=== PATIENT | female | born 1945 | race Caucasian/White ===

== ENCOUNTER 2022-05-03 09:29 | Day surgery (SDC) | payer BC, SELFPAY ==
[2022-05-03 09:40] VITALS: BP 142/71; PULSE 76; RESP 16; TEMP 36.6; O2SAT 99
[2022-05-03 10:12] VITALS: BMI 23.9
--- NOTE | 2022-05-03 10:12 | W.ANESPRE ---
General Info Date of Service Date Performed: 05/03/22 Height: 5 ft 3 in Weight: 61.235 kg Body Mass Index (BMI): 23.9 Surgical Procedure: Operation Date: 05/03/22 11:25 Proposed Procedure Side Surgeon p Cataract Extraction with IOL Implant Left Morales Coto MD Meds Allergies and Home Medications Allergies Allergy/AdvReac Type Severity Reaction Status Date / Time cefuroxime [From Ceftin] Allergy Severe Anaphylaxis Unverified 05/03/22 10:25 latex Allergy Severe Skin Rash Unverified 05/03/22 10:25 prednisone Allergy Severe Anaphylaxis Unverified 05/03/22 10:25 sulfamethoxazole Allergy Mild Hives Unverified 05/03/22 10:25 clarithromycin [From Biaxin] Allergy Unknown Other (See Unverified 05/03/22 10:25 Comment) NSAIDS (Non-Steroidal AdvReac Severe Contraindic Unverified 05/03/22 10:25 Anti-Inflamma ated tramadol AdvReac Severe Contraindic Unverified 05/03/22 10:25 ated Home Medication Medication Instructions Recorded carbidopa ER 36.25 mg-levodopa 145 2 cap PO DIRECTED 04/30/22 mg capsule,extended release carbidopa ER 48.75 mg-levodopa 195 1 cap PO DIRECTED 04/30/22 mg capsule,extended release cyclosporine 0.05 % eye drops in a 1 drp ophthalmic (eye) Q12H 04/30/22 dropperette diclofenac 75 mg-misoprostol 200 1 tab PO DAILY 04/30/22 mcg tablet,immediate,delayed release (Arthrotec) dicyclomine 10 mg capsule 10 mg PO TID 04/30/22 fluticasone propionate 50 1 spray intranasal BID 04/30/22 mcg/actuation nasal spray,suspension omeprazole 40 mg capsule,delayed 40 mg PO DAILY 04/30/22 release Current Visit Medications: Current Medications Generic Name Dose Route Start Last Admin Trade Name Freq PRN Reason Stop Dose Admin Acetaminophen 1,000 mg 05/03/22 06:00 Acetaminophen 500 Mg Tab PO Q4H PRN PRN Miscellaneous Medication 0 ml 05/03/22 06:00 Tropicam./Phenyleph. 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 Hx of surgical procedure Hx of rib removal [place] teeth extracted Tobacco Smoking/Tobacco Use Status: Never Alcohol Alcohol Intake: never Substance Use Substance use: Never Substance use type: does not use Vital Signs and Lab Results Lab Results Blood Type / Crossmatch: No Data to Display Complete Blood Count: No Data to Display Complete Metabolic Panel: No Data to Display Liver Function Panel: No Data to Display Coagulation Panel: No Data to Display Cardiac Panel: No Data to Display Arterial Blood Gas: No Data to Display Venous Blood Gas: No Data to Display Pancreas Panel: No Data to Display Thyroid Panel: No Data to Display Infectious Disease: No Data to Display Blood Cultures: No Data to Display Toxicology Panel: No Data to Display Anesthesia Assessment and Plan Anesthesia History Personal History: No History of Anesthesia Complications Family History: No Family History of Anesthesia Complications Exercise Tolerance Exercise Tolerance: Metabolic Equivalents>4 Cardiac & Pulmonary Exam Cardiac Exam: Normal S1/S2 Heart Sounds Pulmonary Exam: Clear Bilateral Breath Sounds Implantable Cardiac Device Does patient have a Pacemaker or an ICD?: No Airway Exam Known Difficult Airway: No Mallampati Class: 1 Mouth Opening: Normal (> 3cm) Thyromental Distance: Greater than 3 cm Neck Range of Motion: Full ROM Neck Circumference: Normal Teeth Condition: Normal Dentition ASA Classification ASA Score: ASA 2 Emergency Case?: No NPO Status NPO Status: NPO Clears >2 hours, Solids >8 hours Anesthesia Plan Resuscitation Status: Full Code Anesthesia Technique: MAC Anesthesia Airway Planned: Natural Airway Monitors Used: Standard Monitors
[2022-05-03] MEDS: Tropicam./Phenyleph. (1/2.5%) 5 ML BTL OS ×3 (10:14→10:37)
[2022-05-03 10:25] VITALS: BP 151/72; PULSE 66; RESP 18; TEMP 36.2; O2SAT 99
[2022-05-03] MEDS: Tetracaine 0.5% 4 ML BTL OS (11:21)
[2022-05-03] MEDS: Duovisc Viscoelastic System EACH 1 EACH (11:22)
[2022-05-03] MEDS: Balanced Salt Soln.-PLUS 500 ML BAG (11:22)
[2022-05-03] MEDS: Phenylephrine/Lidocaine (15/10) MG/ML 1 ML VIAL (11:23)
[2022-05-03] MEDS: Lidocaine 2% Jelly 6 ML SYR (11:23)
[2022-05-03] MEDS: Povidone-Iodine Ophth 30 ML BTL (11:24)
[2022-05-03] MEDS: Lidocaine 1% Pres-Free 5 ML VIAL (11:24)
[2022-05-03] MEDS: Moxifloxacin 0.5% 3 ML BTL OS (11:32)
[2022-05-03 11:37] VITALS: BP 138/75; PULSE 69; RESP 16; TEMP 36.6; O2SAT 98
--- NOTE | 2022-05-03 11:39 | W.PM.DSUDISC ---
Date of service: 05/03/22 Time of Service: 11:39 Discharge Plan Disposition Patient Disposition: Home Discharge Details Attending Provider: Morales Coto Primary Care Provider: Darrin Beebe Home Meds and New Rx's Prescriptions: No Action omeprazole 40 mg Capsule,Delayed Release(Dr/Ec) 40 mg PO DAILY dicyclomine 10 mg Capsule 10 mg PO TID cyclosporine 0.05 % Dropperette 1 drp ophthalmic (eye) Q12H Rytary 36.25-145 mg Capsule, Extended Release 2 cap PO TID Rx Instructions: tid fluticasone propionate 50 mcg/actuation [place],Suspension 1 spray INTRANASAL BID diclofenac-misoprostol [Arthrotec 75] 75-200 mg-mcg Tablet,Ir,Delayed Rel,Biphasic 1 tab PO DAILY carbidopa-levodopa [Sinemet] 25-100 mg Tablet 1 tab PO PRN PRN bupropion HCl 150 mg Tablet Sustained-Release 12 Hr 150 mg PO DAILY bupropion HCl 75 mg Tablet 75 mg PO HS Discharge Instructions Stand Alone Forms: Post-op Topical Cataract, Giuliano Rivera ([facility]U) Discharge Orders Discharge Orders: Discharge Order (Routine); Ordered 05/03/22 Ordered By: Morales Coto DS: Diagnosis Discharge Diagnosis (1) Nuclear age-related cataract, left eye: Status: Resolved (2) Cortical cataract of left eye: Status: Resolved
--- NOTE | 2022-05-03 11:40 | ROE_ITS ---
Date of service: 05/03/22 Time of Service: 11:40 Operative Note Operative Note DATE OF PROCEDURE: 05/03/22 PRE-OP DIAGNOSIS: Nuclear/cortical cataract, left eye POST-OP DIAGNOSIS: same PROCEDURE: Cataract extraction using phacoemulsification with intraocular lens implant, left eye SURGEON: Morales Coto ANESTHESIA TYPE: Local By Surgeon and MAC Refer to Anesthesia Record PATHOLOGY: none sent COMPLICATIONS: None Patient was transported to: same day Patient's condition: stable Implants: Candelario and Candelario Tecnis Eyhance [id number] Indications: Progressive decreased vision due to cataract, left eye Procedure Description: CATARACT SURGERY OPERATIVE REPORT PREOPERATIVE DIAGNOSIS: 1. Nuclear/cortical cataract, left eye POSTOPERATIVE DIAGNOSIS: Same OPERATION: 1. Cataract extraction using phacoemulsification with posterior chamber intraocular lens implant, left eye. IOL: IOL Overhead Crane Technician/Model: Candelario & Candelario Tecnis Eyhance DIB00 IOL Power: + 22.0 diopters IOL Serial Number: [id number] Optic Diameter: 6.0 mm Haptic/Overall Diameter: 13.0 mm PHACO INFO: [employer] Vision System with OZil and Active Fluidics Cumulative Dispersed Energy (CDE): 7.50 seconds SURGEON: Morales Coto MD, MEDARDO ANESTHESIA: Monitored A [facility] (MAC), with local sub-tenon's anesthetic infiltration COMPLICATIONS: None SPECIMENS: None INDICATIONS FOR PROCEDURE: The patient is a 76-year-old lady with history of diminished visual acuity in her left eye secondary to the development of nuclear/cortical cataract. She is significantly symptomatic that she desires cataract surgery and attempt to improve and maximize her vision. PROCEDURE: The correct surgical eye was identified and marked as the left eye and the pupil was dilated in the preoperative area using mydriatics and cycloplegics. The dilated pupil size was 7.0 mm. The patient elected to proceed without oral sedation. The patient was brought to the operating room where cardiopulmonary monitoring was instituted and surgical time-out was performed, confirming the correct operative eye and IOL power. Topical anesthesia was administered and ophthalmic povidone-iodine 5% was instilled into the conjunctival fornices. Lidocaine gel was applied to the cornea and the marian-ocular area was prepped with Betadine 10% solution and draped in the usual sterile fashion for intraocular surgery, including an aperture drape. A Tegaderm transparent film dressing was cut in half and used to cover the lashes and lid margins. Care was taken to sequester the lashes and lid margins under the Tegaderm dressing. A lid speculum was placed between the lids of the operative eye and the Ady Lux[employer] Revalia operating microscope was maneuvered into position. Edelmira scissors were then used to make a conjunctival buttonhole approximately 6mm posterior to the limbus in the inferonasal quadrant. Blunt dissection was carried out to expose bare sclera, and a blunt-tipped sub-tenon?s anesthesia cannula was introduced and passed posteriorly along the globe where non- preserved plain lidocaine was injected into posterior sub-Tenon?s space. A sideport knife was used to make a paracentesis port superiorly/superiortemporally. Intraocular phenylephrine/lidocaine was injected int the anterior chamber.. The anterior chamber was filled with viscoelastic. A keratome knife was used to construct a 2-plane near-clear corneal tunnel extending 2.0mm into clear cornea temporally. A flap was raised on the anterior capsule and capsulorhexis forceps were used to complete a continuous curvilinear capsulorhexis of 5.0 mm. Balanced salt solution was then used to perform cortical cleaving hydrodissection and nuclear hydrodelineation until the lens could be freely rotated within the capsular bag. The lens nucleus was then disassembled and removed within the capsular bag and iris plane using phacoemulsification. Residual cortical material was removed using the 45-degree angled silicone I/A tip with 0.3mm port. The posterior capsule was carefully polished to remove as much residual lens epithelial cells as safely possible. The capsular bag was then inflated and the anterior chamber deepened with viscoelastic. The lens implant described above was inserted into the capsular bag using the Candelario and Candelario Simplicity pre-loaded injector. . A Kuglen hook was used to dial the IOL into position. Residual viscoelastic was then removed first from posterior to the IOL, then from the anterior chamber using the I/A handpiece. The lens implant was noted to center nicely within the capsular bag. The incisions were stromally hydrated, and the anterior chamber was reformed using BSS. Then 0.5cc of moxifloxacin 1.0mg/ml were injected into the capsular bag and anterior chamber. The incisions were checked with a Weck spear and found to be secure. Several drops of ophthalmic povidone-iodine 5% were then applied to the eye followed by two drops of moxifloxacin 0.5% solution. The drapes were removed and a clear plastic protective eye shield was placed over the eye. The patient was then returned to Same Day Surgery in stable condition.
--- NOTE | 2022-05-03 11:46 | W.ANESPOSTOP ---
Postoperative Evaluation Date, Time and Location Date Performed: 05/03/22 Time Performed: 11:46 Patient Location: Day Surgery Unit Vital Signs Most Recent Imported Vital Signs: Most Recent Vital Signs Temp Pulse Resp BP Pulse Ox 36.6 C 69 16 138/75 98 05/03/22 11:37 05/03/22 11:37 05/03/22 11:37 05/03/22 11:37 05/03/22 11:37 Pain Score Most Recent Pain Score: Most Recent Pain Score Pain Level 0 05/03/22 11:37 Assessment Mental Status: Awake (Alert & Oriented to Patient Baseline) Airway and Respiratory Function: Patent airway with normal (patient baseline) respiratory exam Cardiovascular Function: Hemodynamically Stable Hydration Status: Adequately Hydrated Nausea & Vomiting: No Nausea or Vomiting Pain: Pt. Denies Any Pain Peripheral Nerve Block: Patient did not receive a nerve block
== END 2022-05-03 12:30 | disposition home or self-care (01) ==
LOC: SUR 09:32
PROVIDERS: PCP Family Medicine; Visit Provider Ophthalmology
PROC: (CPT 66984; principal; 2022-05-03 11:15)
DX: H25.12 Age-related nuclear cataract, left eye (principal)
CPT/HCPCS: 66984; V2632

== ENCOUNTER 2022-05-17 08:58 | Day surgery (SDC) | payer BC, SELFPAY ==
[2022-05-17 09:20] VITALS: BP 140/77; PULSE 78; RESP 18; TEMP 36.1; O2SAT 99
[2022-05-17] MEDS: Tropicam./Phenyleph. (1/2.5%) 5 ML BTL OD ×3 (09:43→10:00)
--- NOTE | 2022-05-17 10:07 | W.ANESPRE ---
General Info Date of Service Date Performed: 05/17/22 Height: 5 ft 11 in Weight: 63.4 kg Body Mass Index (BMI): 19.5 Surgical Procedure: Operation Date: 05/17/22 10:40 Proposed Procedure Side Surgeon p Cataract Extraction with IOL Implant Right Morales Coto MD Meds Allergies and Home Medications Allergies Allergy/AdvReac Type Severity Reaction Status Date / Time cefuroxime [From Ceftin] Allergy Severe Anaphylaxis Unverified 05/17/22 09:41 latex Allergy Severe Skin Rash Unverified 05/17/22 09:41 prednisone Allergy Severe Anaphylaxis Unverified 05/17/22 09:41 sulfamethoxazole Allergy Mild Hives Unverified 05/17/22 09:41 clarithromycin [From Biaxin] Allergy Unknown Other (See Unverified 05/17/22 09:41 Comment) NSAIDS (Non-Steroidal AdvReac Severe Contraindic Unverified 05/17/22 09:41 Anti-Inflamma ated tramadol AdvReac Severe Contraindic Unverified 05/17/22 09:41 ated Home Medication Medication Instructions Recorded carbidopa ER 36.25 mg-levodopa 145 2 cap PO TID 04/30/22 mg capsule,extended release (Rytary) cyclosporine 0.05 % eye drops in a 1 drp ophthalmic (eye) Q12H 04/30/22 dropperette diclofenac 75 mg-misoprostol 200 1 tab PO DAILY 04/30/22 mcg tablet,immediate,delayed release (Arthrotec) dicyclomine 10 mg capsule 10 mg PO TID 04/30/22 fluticasone propionate 50 1 spray intranasal BID 04/30/22 mcg/actuation nasal spray,suspension omeprazole 40 mg capsule,delayed 40 mg PO DAILY 04/30/22 release bupropion HCl 150 mg tablet,12 hr 150 mg PO DAILY 05/03/22 sustained-release bupropion HCl 75 mg tablet 75 mg PO HS 05/03/22 carbidopa 25 mg-levodopa 100 mg 1 tab PO PRN PRN 05/03/22 tablet (Sinemet) Current Visit Medications: Current Medications Generic Name Dose Route Start Last Admin Trade Name Freq PRN Reason Stop Dose Admin Acetaminophen 1,000 mg 05/17/22 06:00 Acetaminophen 500 Mg Tab PO Q4H PRN PRN Miscellaneous Medication 0 ml 05/17/22 06:00 05/17/22 10:00 Tropicam./Phenyleph. (1/2.5%) 5 Ml Btl OD 1 drp DIRECTED ISAIAH Administration Moxifloxacin HCl 3 ml 05/17/22 08:30 Moxifloxacin 0.5% 3 Ml Btl OD TID ISAIAH Tetracaine HCl 0 ml 05/17/22 06:00 Tetracaine 0.5% 4 Ml Btl OD DIRECTED ISAIAH PFSH Active Problems Active Problems: Problem Status Onset Code Cortical cataract of right eye H26.9 Nuclear age-related cataract, right eye H25.11 Nuclear age-related cataract, left eye H25.12 Cortical cataract of left eye H26.9 Medical History Medical History Depression Fractures Parkinson disease Tardive dyskinesia Umbilical hernia Surgical History Surgical History H/O discectomy 2007 History of section History of excision of pilonidal cyst History of tubal ligation Hx of cataract removal with insertion of prosthetic lens left eye Hx of repair of rotator cuff 2019. Hx of surgical procedure Hx of rib removal [place] teeth extracted Tobacco Smoking/Tobacco Use Status: Never Alcohol Alcohol Intake: never Substance Use Substance use: Never Substance use type: does not use Vital Signs and Lab Results Vital Signs Most Recent Vital Signs in EMR: Most Recent Vital Signs Temp Pulse Resp BP Pulse Ox 36.1 C L 78 18 140/77 99 05/17/22 09:20 05/17/22 09:20 05/17/22 09:20 05/17/22 09:20 05/17/22 09:20 Lab Results Blood Type / Crossmatch: No Data to Display Complete Blood Count: No Data to Display Complete Metabolic Panel: No Data to Display Liver Function Panel: No Data to Display Coagulation Panel: No Data to Display Cardiac Panel: No Data to Display Arterial Blood Gas: No Data to Display Venous Blood Gas: No Data to Display Pancreas Panel: No Data to Display Thyroid Panel: No Data to Display Infectious Disease: No Data to Display Blood Cultures: No Data to Display Toxicology Panel: No Data to Display Anesthesia Assessment and Plan Anesthesia History Personal History: No History of Anesthesia Complications Family History: No Family History of Anesthesia Complications Exercise Tolerance Exercise Tolerance: Metabolic Equivalents>4 Pertinent Negatives Pertinent Negatives: No Major Cardiovascular Symptoms or Complaints, No Major Pulmonary Symptoms or Complaints and No History of CVA/TIA Cardiac & Pulmonary Exam Cardiac Exam: Normal S1/S2 Heart Sounds Pulmonary Exam: Clear Bilateral Breath Sounds Implantable Cardiac Device Does patient have a Pacemaker or an ICD?: No Airway Exam Known Difficult Airway: No Mallampati Class: 1 Mouth Opening: Normal (> 3cm) Thyromental Distance: Greater than 3 cm Neck Range of Motion: Full ROM Neck Circumference: Normal Teeth Condition: Normal Dentition ASA Classification ASA Score: ASA 3 Emergency Case?: No NPO Status NPO Status: NPO Clears >2 hours, Solids >8 hours Anesthesia Plan Resuscitation Status: Full Code Anesthesia Technique: MAC Anesthesia Airway Planned: Natural Airway Monitors Used: Standard Monitors
[2022-05-17 10:34] VITALS: BMI 19.5
[2022-05-17] MEDS: Moxifloxacin 0.5% 3 ML BTL OD (11:14)
[2022-05-17] MEDS: Tetracaine 0.5% 4 ML BTL OD (11:15)
[2022-05-17] MEDS: Lidocaine 1% Pres-Free 5 ML VIAL (11:15)
[2022-05-17] MEDS: Duovisc Viscoelastic System EACH 1 EACH (11:17)
[2022-05-17] MEDS: Balanced Salt Soln.-PLUS 500 ML BAG (11:17)
[2022-05-17] MEDS: Phenylephrine/Lidocaine (15/10) MG/ML 1 ML VIAL (11:18)
[2022-05-17] MEDS: Povidone-Iodine Ophth 30 ML BTL (11:18)
[2022-05-17 11:30] VITALS: BP 131/69; PULSE 72; RESP 16; TEMP 36.6; O2SAT 98
--- NOTE | 2022-05-17 11:30 | ROE_ITS ---
Date of service: 05/17/22 Time of Service: 11:30 Operative Note Operative Note DATE OF PROCEDURE: 05/17/22 PRE-OP DIAGNOSIS: Nuclear/cortical cataract, right eye POST-OP DIAGNOSIS: same PROCEDURE: Cataract extraction using phacoemulsification with intraocular lens implant, left eye SURGEON: Morales Coto ANESTHESIA TYPE: Local By Surgeon and MAC Refer to Anesthesia Record PATHOLOGY: none sent COMPLICATIONS: None Patient was transported to: same day Patient's condition: stable Implants: Candelario and Candelario Tecnis Eyhance DIB00 Indications: Progressive decreased vision due to cataract, left eye Procedure Description: CATARACT SURGERY OPERATIVE REPORT PREOPERATIVE DIAGNOSIS: 1. Nuclear/cortical cataract, right eye POSTOPERATIVE DIAGNOSIS: Same OPERATION: 1. Cataract extraction using phacoemulsification with posterior chamber intraocular lens implant, left eye. IOL: IOL Hot Stick Man/Model: Candelario & Candelario Tecnis Eyhance DIB00 IOL Power: + 22.5 diopters IOL Serial Number: [id number] Optic Diameter: 6.0 mm Haptic/Overall Diameter: 13.0 mm PHACO INFO: [employer] Vision System with OZil and Active Fluidics Cumulative Dispersed Energy (CDE): 6.01 seconds SURGEON: Morales Coto MD, MEDARDO ANESTHESIA: Monitored A [facility] (MAC), with local sub-tenon's anesthetic infiltration COMPLICATIONS: None SPECIMENS: None INDICATIONS FOR PROCEDURE: The patient is a 76-year-old lady with history of diminished visual acuity in her right eye secondary to the development of nuclear/cortical cataract. She has already undergone cataract surgery in the left eye and is doing well postoperatively. She now presents for cataract surgery in the right eye. PROCEDURE: The correct surgical eye was identified and marked as the left eye and the pupil was dilated in the preoperative area using mydriatics and cycloplegics. The dilated pupil size was 6.0 mm. . The patient elected to proceed without oral sedation. The patient was brought to the operating room where cardiopulmonary monitoring was instituted and surgical time-out was performed, confirming the correct operative eye and IOL power. Topical anesthesia was administered and ophthalmic povidone-iodine 5% was instilled into the conjunctival fornices. Lidocaine gel was applied to the cornea and the marian-ocular area was prepped with Betadine 10% solution and draped in the usual sterile fashion for intraocular surgery, including an aperture drape. A Tegaderm transparent film dressing was cut in half and used to cover the lashes and lid margins. Care was taken to sequester the lashes and lid margins under the Tegaderm dressing. A lid speculum was placed between the lids of the operative eye and the Ady Lux[employer] Revalia operating microscope was maneuvered into position. Edelmira scissors were then used to make a conjunctival buttonhole approximately 6mm posterior to the limbus in the inferonasal quadrant. Blunt dissection was carried out to expose bare sclera, and a blunt-tipped sub-tenon?s anesthesia cannula was introduced and passed posteriorly along the globe where non- preserved plain lidocaine was injected into posterior sub-Tenon?s space. A sideport knife was used to make a paracentesis port s uperiorly/superiortemporally. Intraocular phenylephrine/lidocaine was injected int the anterior chamber.. The anterior chamber was filled with viscoelastic. A keratome knife was used to construct a 2-plane near-clear corneal tunnel extending 2.0mm into clear cornea temporally. A flap was raised on the anterior capsule and capsulorhexis forceps were used to complete a continuous curvilinear capsulorhexis of 5.0 mm. Balanced salt solution was then used to perform cortical cleaving hydrodissection and nuclear hydrodelineation until the lens could be freely rotated within the capsular bag. The lens nucleus was then disassembled and removed within the capsular bag and iris plane using phacoemulsification. Residual cortical material was removed using the 45-degree angled silicone I/A tip with 0.3mm port. The posterior capsule was carefully polished to remove as much residual lens epithelial cells as safely possible. The capsular bag was then inflated and the anterior chamber deepened with viscoelastic. The lens implant described above was inserted into the capsular bag using the Candelario and Candelario Simplicity pre-loaded injector. . A Kuglen hook was used to dial the IOL into position. Residual viscoelastic was then removed first from posterior to the IOL, then from the anterior chamber using the I/A handpiece. The lens implant was noted to center nicely within the capsular bag. The incisions were stromally hydrated, and the anterior chamber was reformed using BSS. Then 0.5cc of moxifloxacin 1.0mg/ml were injected into the capsular bag and anterior chamber. The incis ions were checked with a Weck spear and found to be secure. Several drops of ophthalmic povidone-iodine 5% were then applied to the eye followed by two drops of moxifloxacin 0.5% solution. The drapes were removed and a clear plastic protective eye shield was placed over the eye. The patient was then returned to Same Day Surgery in stable condition.
--- NOTE | 2022-05-17 11:30 | W.PM.DSUDISC ---
Date of service: 05/17/22 Time of Service: 11:30 Discharge Plan Disposition Patient Disposition: Home Discharge Details Attending Provider: Morales Coto Primary Care Provider: Darrin Beebe Home Meds and New Rx's Prescriptions: No Action omeprazole 40 mg Capsule,Delayed Release(Dr/Ec) 40 mg PO DAILY dicyclomine 10 mg Capsule 10 mg PO TID cyclosporine 0.05 % Dropperette 1 drp ophthalmic (eye) Q12H Rytary 36.25-145 mg Capsule, Extended Release 2 cap PO TID Rx Instructions: tid fluticasone propionate 50 mcg/actuation [place],Suspension 1 spray INTRANASAL BID diclofenac-misoprostol [Arthrotec 75] 75-200 mg-mcg Tablet,Ir,Delayed Rel,Biphasic 1 tab PO DAILY carbidopa-levodopa [Sinemet] 25-100 mg Tablet 1 tab PO PRN PRN bupropion HCl 150 mg Tablet Sustained-Release 12 Hr 150 mg PO DAILY bupropion HCl 75 mg Tablet 75 mg PO HS Discharge Instructions Stand Alone Forms: Post-op Topical Cataract, Giuliano Rivera ([facility]U) Discharge Orders Discharge Orders: Discharge Order (Routine); Ordered 05/17/22 Ordered By: Morales Coto DS: Diagnosis Discharge Diagnosis (1) Cortical cataract of right eye: Status: Resolved (2) Nuclear age-related cataract, right eye: Status: Resolved
--- NOTE | 2022-05-17 11:49 | W.ANESPOSTOP ---
Postoperative Evaluation Date, Time and Location Date Performed: 05/17/22 Time Performed: 11:30 Patient Location: Day Surgery Unit Vital Signs Most Recent Imported Vital Signs: Most Recent Vital Signs Temp Pulse Resp BP Pulse Ox 36.6 C 72 16 131/69 98 05/17/22 11:30 05/17/22 11:30 05/17/22 11:30 05/17/22 11:30 05/17/22 11:30 Pain Score Most Recent Pain Score: Most Recent Pain Score Pain Level 0 05/17/22 11:30 Assessment Mental Status: Awake (Alert & Oriented to Patient Baseline) Airway and Respiratory Function: Patent airway with normal (patient baseline) respiratory exam Cardiovascular Function: Hemodynamically Stable Hydration Status: Adequately Hydrated Nausea & Vomiting: No Nausea or Vomiting Pain: Pt. Denies Any Pain Peripheral Nerve Block: Patient did not receive a nerve block
--- NOTE | 2022-05-31 09:25 | ROE_ITS ---
Date of service: 05/17/22 Time of Service: 11:30 Operative Note Operative Note DATE OF PROCEDURE: 05/17/22 PRE-OP DIAGNOSIS: Nuclear/cortical cataract, right eye POST-OP DIAGNOSIS: same PROCEDURE: Candelario [employer] Candelario Tecnis Eyhance DIB00 SURGEON: Morales Coto ANESTHESIA TYPE: Local By Surgeon and MAC Refer to Anesthesia Record ESTIMATED BLOOD LOSS: 0 PATHOLOGY: none sent COMPLICATIONS: None Patient was transported to: same day Patient's condition: stable Implants: Candelario and Candelario Tecnis Eyhance DIB00 Indications: Progressive visual loss due to cataract, right eye Procedure Description: CATARACT SURGERY OPERATIVE REPORT PREOPERATIVE DIAGNOSIS: 1. Nuclear/cortical cataract, right eye POSTOPERATIVE DIAGNOSIS: Same OPERATION: 1. Cataract extraction using phacoemulsification with posterior chamber intraocular lens implant, right eye. IOL: IOL Certified Phlebotomy Technician/Model: Candelario & Candelario Tecnis Eyhance DIB00 IOL Power: + 22.5 diopters IOL Serial Number: [id number] Optic Diameter: 6.0mm Haptic/Overall Diameter: 13.0mm PHACO INFO: Ady[employer] VISION Vision System with OZil and Active Fluidics Cumulative Dispersed Energy (CDE): 6.01 seconds SURGEON: Morales Coto MD, MEDARDO ANESTHESIA: Monitored Anesthesia Care (MAC), with local sub-tenon's anesthetic infiltration COMPLICATIONS: None SPECIMENS: None INDICATIONS FOR PROCEDURE: The patient is a 76-year-old lady with history of diminished visual acuity and her right eye secondary to the development of significant nuclear/cortical cataract. She has already undergone cataract surgery in the left eye and is doing well postoperatively. She now presents for cataract surgery in the right eye. PROCEDURE: The correct surgical eye was identified and marked as the right eye and the pupil was dilated in the preoperative area using mydriatics and cyclop legics. The dilated pupil size was 6.0 mm. The patient elected to proceed without oral sedation. The patient was brought to the operating room where cardiopulmonary monitoring was instituted and surgical time-out was performed, confirming the correct operative eye and IOL power. Topical anesthesia was administered and ophthalmic povidone-iodine 5% was instilled into the conjunctival fornices. Lidocaine gel was applied to the cornea and the marian-ocular area was prepped with Betadine 10% solution and draped in the usual sterile fashion for intraocular surgery, including an aperture drape. A Tegaderm transparent film dressing was cut in half and used to cover the lashes and lid margins. Care was taken to sequester the lashes and lid margins under the Tegaderm dressing. A lid speculum was placed between the lids of the operative eye and the Ady LuxOR Revalia operating microscope was maneuvered into position. Edelmira scissors were then used to make a conjunctival buttonhole approximately 6mm posterior to the limbus in the inferonasal quadrant. Blunt dissection was carried out to expose bare sclera, and a blunt-tipped sub-tenon?s anesthesia cannula was introduced and passed posteriorly along the globe where non- preserved plain lidocaine was injected into posterior sub-Tenon?s space. A sideport knife was used to make a paracentesis port inferotemporally. Intraocular phenylephrine/lidocaine was injected into the anterior chamber. The anterior chamber was filled with viscoelastic. A keratome knife was used to construct a 2-plane near-clear corneal tunnel extending 2.0mm into clear cornea superiortemporally. A flap was raised on the anterior capsule and capsulorhexis forceps were used to complete a continuous curvilinear capsulorhexis of 5.0 mm. Balanced salt solution was then used to perform cortical cleaving hydrodissection and nuclear hydrodelineation until the lens could be freely rotated within the capsular bag. The lens nucleus was then disassembled and removed within the capsular bag and iris plane using phacoemulsification. Residual cortical material was removed using the I/A handpiece. The posterior capsule was carefully polished to remove as much residual lens epithelial cells as safely possible. The capsular bag was then inflated and the anterior chamber deepened with viscoelastic. The lens implant described above was inserted into the capsular bag using the Candelario and Alpesh Simplicity pre-loaded injector. A Kuglen hook was used to dial the IOL into position. Residual viscoelastic was then removed first from posterior to the IOL, then from the anterior chamber using the I/A handpiece. The lens implant was noted to center nicely within the capsular bag. The incisions were stromally hydrated, and the anterior chamber was reformed using BSS. Then 0.5cc of moxifloxacin 1.0mg/ml were injected into the capsular bag and anterior chamber. The incisions were checked with a Weck spear and found to be secure. Several drops of ophthalmic povidone-iodine 5% were then applied to the eye followed by two drops of Imprimis combination prednisolone/moxifloxacin/nepafenac solution. The drapes were removed and a clear plastic protective eye shield was placed over the eye. The patient was then returned to [facility] in stable condition.
== END 2022-05-17 12:02 | disposition home or self-care (01) ==
LOC: SUR 08:59
PROVIDERS: PCP Family Medicine; Visit Provider Ophthalmology
PROC: (CPT 66984; principal; 2022-05-17 10:30)
DX: H25.11 Age-related nuclear cataract, right eye
CPT/HCPCS: 66984; V2632